=== PATIENT | female | born 1980 | race Caucasian/White ===

== ENCOUNTER 2020-11-28 11:44 | Emergency (ER) | payer OTHER ==
[2020-11-28 11:56] VITALS: BP 135/93; PULSE 104; TEMP 98; BMI 26.8
[2020-11-28] MEDS ORDERED: ACETAMINOPHEN 500 MG TABLET (FP) PO ONE (11:56)
[2020-11-28] MEDS ORDERED: ACETAMINOPHEN 500 MG TABLET (FP) ONE (12:04)
[2020-11-28] MEDS ORDERED: DIPHTH,PERTUSS(ACELL),TET 0.5 ML DISP.SYRIN IM ONE ×2 (12:12→12:14)
[2020-11-28] MEDS ORDERED: LIDOCAINE HCL 1%, 10 MG/ML (50 mL VIAL) SQ ONE (12:46)
[2020-11-28] MEDS ORDERED: LIDOCAINE HCL 1%, 10 MG/ML (20ML VIAL) ONE (12:48)
[2020-11-28] MEDS ORDERED: CEPHALEXIN MONOHYDRATE 500 MG CAPSULE (UD) PO ONE (13:05)
[2020-11-28] MEDS ORDERED: CEPHALEXIN MONOHYDRATE 500 MG CAPSULE (UD) ONE (13:07)
== END 2020-11-28 13:15 | disposition home or self-care (01) ==
LOC: FER 11:44
PROC: 3E0234Z Introduction of Serum, Toxoid and Vaccine into Muscle, Percutaneous Approach (ICD-10-PCS; principal; 2020-11-28)
DX: S61.209A Unspecified open wound of unspecified finger without damage to nail, initial encounter (principal)
CPT/HCPCS: 73140-TC-LT-FY; 90715; 99284-25